=== PATIENT | male | born 1950 | race Asian ===

== ENCOUNTER 2018-12-18 16:40 | Emergency (ER) | payer MEDICAID ==
[2018-12-18] MEDS: DEXAMETHASONE 10 MG/ML 1 ML INJ IM (17:40)
[2018-12-18] MEDS: KETOROLAC 30 MG INJ IM (17:40)
== END 2018-12-18 18:42 | disposition home or self-care (01) ==
LOC: FTE 16:40
DX: R05 Cough (principal); E11.9 Type 2 diabetes mellitus without complications; I10 Essential (primary) hypertension
CPT/HCPCS: 71046; 96372; 99284-25